=== PATIENT | male | born 1945 | race Caucasian/White ===

== ENCOUNTER 2023-01-04 14:33 | Inpatient (IN) | payer OTHER, MEDICARE ==
[~2023-01-04] VITALS: Ht 177.8 cm; Wt 104.5 kg
[2023-01-04] VITALS (11 sets, daily range): BP systolic 87–142; BP diastolic 35–62
[~2023-01-04 14:33] MED LIST: ATOR80TA PO; HYDR12.55 PO; LISI20TA28 PO; METF500T PO; METO100T7 PO; OMEG-79 PO; PREG150C PO; calcium chloride 100 MG/1 ML inj IV ONE; epiNEPHrine 0.1mg/ml 10ml syringe ONE; rocuronium 10mg/ml inj IV ONE; sod chloride 0.9% 10ml flush syringe IV ONE; sodium bicarbonate (8.4%) 1 mEq/ml syringe ONE
--- NOTE | 2023-01-04 14:39 | NUR ---
Pt just got here. Dr. Simons at bedside seen and examined patient
[2023-01-04] MEDS ORDERED: normal saline 1000ML IV soln IV ONE (14:40)
[2023-01-04] MEDS ORDERED: piperacillin/tazo 3.375gm/50ml 50 ML IV ONE (14:55)
--- NOTE | 2023-01-04 15:20 | NUR ---
Dr. Simons at bedside preparing to insert a central line
[2023-01-04 15:29] LABS: HEMOGLOBIN 9.5 g/dl (14.0-17.9); MEAN CORPUSCULAR VOLUME 99.1 FL (78-98)
[2023-01-04 15:30] LABS: BASOPHILS % (AUTO) 0.1 % (0-1); EOSINOPHILS % (AUTO) 0 % (0-6); HEMATOCRIT 29.7 % (42.0-52.0); LYMPHOCYTES # (AUTO) 0.6 X10'3 (1.1-4.8); LYMPHOCYTES % (AUTO) 2.5 % (21-51); MEAN CORPUSCULAR HEMOGLOBIN 31.9 PG (27.0-31.0); MEAN CORPUSCULAR HGB CONC 32.2 g/dL (33.0-36.5); MONOCYTES # (AUTO) 2.1 X10'3 (0-0.9); MONOCYTES % (AUTO) 8.9 % (2-12); NEUTROPHILS # (AUTO) 20.9 X10'3 (1.8-7.7); NEUTROPHILS % (AUTO) 88.5 % (42-75); PLATELET COUNT 185 X10'3 (140-440); RED BLOOD COUNT 2.99 X10'6 (4.70-6.10); RED CELL DISTRIBUTION WIDTH 13.6 % (11.5-14.5); WHITE BLOOD COUNT 23.7 X10'3 (4.5-11.0)
[2023-01-04] MEDS ORDERED: vancomycin 1,750 MG in NS 350ml IV soln IV ONE (15:39)
[2023-01-04] MEDS ORDERED: ketamine 10mg/ml 20ml inj vial IV ONE (15:45)
[2023-01-04] MEDS ORDERED: ketamine 50mg/5ml syringe ONE ×2 (15:45)
[2023-01-04 15:46] LABS: CLARITY,URINE SLIGHTLY CLOUDY (Clear); COLOR,URINE YELLOW (Yellow); GLUCOSE, URINE NEGATIVE (Neg); KETONES,URINE NEGATIVE (Neg); LEUKOCYTE ESTERASE ,URINE NEGATIVE (Neg); NITRITES, URINE NEGATIVE (Neg); OCCULT BLOOD,URINE MODERATE (Neg); PH,URINE 5.5 (4.8-8.0); PROTEIN,URINE 100 mg/dl (Neg); UROBILINOGEN,URINE 0.2 E.U/dL (0.2-1.0)
[2023-01-04] MEDS ORDERED: dexamethasone sod phosphate 10mg/ml inj IV STA (15:49)
[2023-01-04] MEDS ORDERED: NORepinephrine inj. 32 MG in normal saline 250ml IV soln 218 ML IV SCH ×3 (15:50→23:20)
[2023-01-04] MEDS ORDERED: NORepinephrine 8mg/ 250ml NS 250 ML IV PRN (15:50)
[2023-01-04 15:56] LABS: ALANINE AMINOTRANSFERASE 30 U/L (12-78); ALBUMIN/GLOBULIN RATIO 0.9 (1.1-1.5); ALKALINE PHOSPHATASE 83 IU/L (46-116); ANION GAP 29 (8-16); ASPARTATE AMINO TRANSFERASE 132 U/L (10-37); BILIRUBIN,TOTAL 0.2 MG/DL (0.1-1.0); BLOOD UREA NITROGEN 51 MG/DL (7-18); BUN/CREATININE RATIO 6.5 (10.0-20.0); CALCIUM 7.1 MG/DL (8.5-10.1); CHLORIDE 101 MMOL/L (99-107); CREATININE 7.89 MG/DL (0.60-1.10); GLUCOSE 174 MG/DL (70-104); MAGNESIUM 2.9 MG/DL (1.5-2.4); SODIUM 136 MMOL/L (135-145); TOTAL PROTEIN 6.3 G/DL (6.4-8.2); eGFR 7 ML/MIN
[2023-01-04] MEDS: NORepinephrine 8mg/ 250ml NS 250 ML IV PRN ×3 (15:56→23:06)
--- NOTE | 2023-01-04 15:58 | NUR ---
Daniel CLEMENTS administered Epi push dose 2 ml IVP
--- NOTE | 2023-01-04 15:59 | NUR ---
Another 3 ml push dose Epi IV by Sirisha CLEMENTS
[2023-01-04] MEDS ORDERED: sodium bicarbonate (8.4%) 1 mEq/ml syringe IV ONE (16:00)
[2023-01-04] MEDS ORDERED: glucagon, human recombinant 1mg kit IV ONE (16:00)
[2023-01-04 16:04] LABS: PHOSPHORUS 10.1 MG/DL (2.3-4.5); TOTAL CARBON DIOXIDE 5.8 MMOL/L (24-32)
[2023-01-04 16:07] LABS: POTASSIUM 6.4 MMOL/L (3.5-5.1)
--- NOTE | 2023-01-04 16:08 | NUR ---
RY at bedside. Standing by for intubation
[2023-01-04] MEDS ORDERED: midazolam 100mg in NS 100ml 100 ML IV PRN (16:10)
[2023-01-04] MEDS ORDERED: insulin regular, human 10 units/0.1 ml syringe IV ONE (16:10)
--- NOTE | 2023-01-04 16:12 | NUR ---
Rashmi kent in [facility] - 01/04/23 at 1624 by GORDO [id number] 1 amp IV via central line
--- NOTE | 2023-01-04 16:12 | NUR ---
calcium gluconate 1 amp IV given by Minesh CLEMENTS via central line
[2023-01-04] MEDS ORDERED: calcium chloride 100 MG/1 ML inj IV ONE (16:15)
[2023-01-04] MEDS ORDERED: ketamine 50 mg/ml 10ml vial IV ONE (16:17)
[2023-01-04] MEDS ORDERED: CALCIUM GLUC 1gm/50ml NACL,iso 50 ML IV ONE (16:20)
--- NOTE | 2023-01-04 16:21 | NUR ---
Good 50 IV given by Minesh CLEMENTS
--- NOTE | 2023-01-04 16:24 | NUR ---
Intubation ongoing. Pt on wrist restraints. RT at bedside
[2023-01-04 16:25] LABS: ABG BASE EXCESS -26.7 mmol/L (-2.0-2.0); ABG HCO3 4.9 mmol/L (22.0-26.0); ABG OXYGEN SATURATION 97.8 % (94-97); ABG PCO2 (T) 25.6 mmHg (35.0-48.0); ABG PO2 (T) 161.2 mmHg (75.0-100.0); ALLEN'S TEST NEGATIVE; FCOHb 0.3 % (0.0-3.9); FLOW 6 L/min; FMetHb 0.2 % (0.0-1.5); FO2Hb 97.3 % (94-97); TOTAL HEMOGLOBIN 10.6 G/dl (14.0-17.9)
--- NOTE | 2023-01-04 16:25 | NUR ---
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 POISON CONTROL STATES THAT THE RESULT OF THIS CAUSES TWISTER TENDER PAPER DEPRESSION AND MAY RESULT IN RENAL AND LIVER TOXICITY. POISON CONTROL STATES THAT THERE IS NOT CURE/ANECDOTE AND SUPPORTIVE TREATMENT IS RECOMMENDED. PROTECTING AIRWAY WITH INTUBATION AND CORRECTING ACIDOSIS, TYLENOL LEVEL, AND ASA LEVEL.
[2023-01-04 16:30] LABS: UA COLLECTION TYPE FOLEY CATH
[2023-01-04 16:31] LABS: MUCUS STRANDS FEW /LPF (Neg); SQUAMOUS EPITHELIAL CELL,UR FEW /LPF (FEW)
[2023-01-04 16:32] LABS: RENAL CELLS, URINE MODERATE /HPF; TRANSITIONAL EPI CELLS,URINE MODERATE /HPF
[2023-01-04 16:33] LABS: BACTERIA,URINE FEW /HPF (Neg); RBC,URINE 0-2 /HPF (0-2); WBC,URINE 0-4 /HPF (0-4)
[2023-01-04] MEDS ORDERED: normal saline 1000ML IV soln IVB ONE (16:45)
[2023-01-04] MEDS ORDERED: sodium bicarbonate (8.4%) inj. 100 MEQ in dextrose 5%-water 1,000 ML IV ONE (16:50)
[2023-01-04 17:10] LABS: ABG BASE EXCESS -25.2 mmol/L (-2.0-2.0); ABG HCO3 6.4 mmol/L (22.0-26.0); ABG OXYGEN SATURATION 96.1 % (94-97); ABG PCO2 (T) 31.9 mmHg (35.0-48.0); ABG PO2 (T) 108.2 mmHg (75.0-100.0); FCOHb 0.3 % (0.0-3.9); FMetHb 0.2 % (0.0-1.5); FO2Hb 95.6 % (94-97); RESPIRATORY RATE 20 b/min; TIDAL VOLUME 500 mL; TOTAL HEMOGLOBIN 11.3 G/dl (14.0-17.9)
[2023-01-04] MEDS: FENTANYL-0.9 % NACL/PF 100 ML IV PRN (17:29)
[2023-01-04 17:35] LABS: ACETAMINOPHEN 7.5 UG/ML (10-30)
[2023-01-04] MEDS ORDERED: acetaminophen 325mg tablet PO PRN (17:40)
[2023-01-04] MEDS ORDERED: mag hydrox/Alum hydrox/simeth 30ml oral suspension PO PRN (17:40)
[2023-01-04] MEDS ORDERED: ondansetron/PF 4mg/2ml inj IV PRN (17:40)
[2023-01-04] MEDS ORDERED: magnesium hydroxide 30ml (MOM) UD suspension PO PRN (17:40)
--- NOTE | 2023-01-04 17:42 | NUR ---
Dr. Geiger came to see the patient. Reported to him critical lab ammonia 168
[2023-01-04] MEDS ORDERED: normal saline 1000ml 1,000 ML IVB ONE (17:45)
--- NOTE | 2023-01-04 17:48 | NUR ---
Daughters at bedside
[2023-01-04 17:49] LABS: URINE AMPHETAMINE SCREEN NEGATIVE (Neg); URINE BARBITUATE SCREEN NEGATIVE (Neg); URINE BENZODIAZEPINES SCREEN NEGATIVE (Neg); URINE CANNABINOID SCREEN NEGATIVE (Neg); URINE COCAINE SCREEN NEGATIVE (Neg); URINE METHADONE SCREEN NEGATIVE (Neg); URINE OPIATE SCREEN NEGATIVE (Neg); URINE PHENCYCLIDINE SCREEN NEGATIVE (Neg)
[2023-01-04 18:00] LABS: ALBUMIN 3.1 G/DL (3.4-5.0); ANION GAP 26 (8-16); BLOOD UREA NITROGEN 52 MG/DL (7-18); BUN/CREATININE RATIO 6.8 (10.0-20.0); CALCIUM 7.9 MG/DL (8.5-10.1); CHLORIDE 100 MMOL/L (99-107); CREATININE 7.68 MG/DL (0.60-1.10); GLUCOSE 241 MG/DL (70-104); POTASSIUM 5.5 MMOL/L (3.5-5.1); SODIUM 136 MMOL/L (135-145); eGFR 7 ML/MIN
--- NOTE | 2023-01-04 18:02 | NUR ---
Patient started waking up, daughters at bedside. Daniel Mcelan called Dr. Geiger for me. Per Dr. Geiger increased the Fentanyl drip to 50mcg/hr.
--- NOTE | 2023-01-04 18:05 | NUR ---
Notified waist cutter for increased sedation, verbal order to increase fentanyl.
[2023-01-04 18:17] LABS: BURR CELLS 4+; PLATELET ESTIMATE NORMAL
--- NOTE | 2023-01-04 18:32 | NUR ---
attempted to call report to ICU at 1830, was informed that recieving RN will call back after completeing assessment on her floor pt.
--- NOTE | 2023-01-04 18:54 | NUR ---
This RN called Dr. Geiger for additional sedation orders due to fentanyl not sedating patient appropriately at 65mcg/hr. Telephone order recieved from Dr. Geiger to increase fentanyl up to 100mcg/hr.
[2023-01-04 19:01] LABS: ETHANOL < 0.010 GM/DL (0.0-0.010)
[2023-01-04 19:05] LABS: CREATINE KINASE 3924 U/L (39-308)
[2023-01-04] MEDS: normal saline 1000ml 1,000 ML IV SCH ×6 (19:06→22:57)
[2023-01-04 19:07] LABS: OSMOLALITY 320 MOSM/K (280-300)
--- NOTE | 2023-01-04 19:20 | NUR ---
Attempted to call Dr. Geiger 2x for additional sedation orders, pt agitated, biting ETT, & pulling on restraints. No answer. Awaiting call back at this time.
--- NOTE | 2023-01-04 19:30 | NUR ---
RT at bedside to transport pt up to ICU.
[2023-01-04] MEDS ORDERED: propofol 1000mg/100ml bottle 100 ML IV ONE (19:55)
[2023-01-04] MEDS ORDERED: heparin, porcine 5000 units/ml vial SQ SCH (20:00)
[2023-01-04] MEDS ORDERED: docusate sod 100mg capsule PO SCH (20:00)
[2023-01-04] MEDS: sodium polystyrene sulfonate 15gm/60ml oral suspension PO SCH (20:00)
[2023-01-04] MEDS: propofol 1000mg/100ml bottle 100 ML IV SCH ×2 (20:04→23:54)
[2023-01-04] MEDS: sodium bicarbonate (8.4%) inj. 150 MEQ in dextrose 5%-water 1,000 ML IV SCH (20:42)
--- NOTE | 2023-01-04 21:13 | NUR ---
orders received from poison control, updated on pts condition and prior labs.
[2023-01-04] MEDS ORDERED: NORMAL SALINE IV SCH (22:00)
[2023-01-04] MEDS ORDERED: DOXYCYCLINE IV SCH (22:00)
[2023-01-04 22:07] LABS: ABG HCO3 6.7 mmol/L (22.0-26.0); ABG OXYGEN SATURATION 95.7 % (94-97); ABG PCO2 (T) 24.4 mmHg (35.0-48.0); ABG PO2 (T) 70.3 mmHg (75.0-100.0); FCOHb 0.3 % (0.0-3.9); FMetHb 0.2 % (0.0-1.5); FO2Hb 95.2 % (94-97); PATIENT TEMPERATURE 31.9; PEEP 5 cm H2O; RESPIRATORY RATE 20 b/min; TIDAL VOLUME 500 mL; TOTAL HEMOGLOBIN 10.8 G/dl (14.0-17.9)
[2023-01-04 22:22] LABS: OSMOLALITY 319 MOSM/K (280-300)
[2023-01-04 22:39] LABS: ALANINE AMINOTRANSFERASE 30 U/L (12-78); ALBUMIN 2.7 G/DL (3.4-5.0); ALBUMIN/GLOBULIN RATIO 0.8 (1.1-1.5); ALKALINE PHOSPHATASE 81 IU/L (46-116); ANION GAP 26 (8-16); ASPARTATE AMINO TRANSFERASE 126 U/L (10-37); BILIRUBIN,TOTAL 0.2 MG/DL (0.1-1.0); BLOOD UREA NITROGEN 51 MG/DL (7-18); CHLORIDE 100 MMOL/L (99-107); CREATININE 7.27 MG/DL (0.60-1.10); GLUCOSE 317 MG/DL (70-104); MAGNESIUM 2.6 MG/DL (1.5-2.4); PHOSPHORUS 8.4 MG/DL (2.3-4.5); POTASSIUM 5.3 MMOL/L (3.5-5.1); SODIUM 135 MMOL/L (135-145); eGFR 7 ML/MIN
[2023-01-04 22:40] LABS: TOTAL CARBON DIOXIDE 8.6 MMOL/L (24-32)
[2023-01-04] MEDS ORDERED: albumin (human) 25% 100ml IV 100 ML IV PRN (22:55)
[2023-01-04] MEDS ORDERED: heparin 1,000unit/ml 10ml vial 10 ML IV ONE (22:55)
[2023-01-04] MEDS ORDERED: mannitol 12.5gm/50mL VIAL IV ONE (22:55)
[2023-01-04] MEDS ORDERED: heparin 1,000 units/ml 10ml inj IV ONE (22:55)
[2023-01-04] MEDS ORDERED: heparin 1,000 units/ml 10ml inj HE ONE ×2 (23:00)
--- NOTE | 2023-01-04 23:00 | NUR ---
rounded by content curator blacking machine operator Dr Promise VEGA , DR. GLASS HERE AND PLACE JALEESA CATH ON LEFT FEMORAL
[2023-01-04] MEDS ORDERED: glucagon, human recombinant 1mg kit SUBCUT PRN (23:20)
[2023-01-04] MEDS ORDERED: MESSAGE TO PHARMACY PO ONE (23:20)
[2023-01-04] MEDS ORDERED: dextrose 50%-water 50ml dispensing syringe IV PRN ×2 (23:20)
[2023-01-04] MEDS ORDERED: insulin Lispro (HumaLOG) vial - multi-dose SQ SCH (23:20)
[2023-01-04] MEDS ORDERED: DEXTROSE 15 GM of carb/4 tabs (each vial/BOTTLE has 4 tablets) PO PRN ×2 (23:20)
[2023-01-05] VITALS (7 sets, daily range): BP systolic 101–113; BP diastolic 45–53
[2023-01-05] MEDS ORDERED: sodium bicarbonate (8.4%) inj. 1 MEQ/ML ML IV ONE
[2023-01-05] MEDS ORDERED: piperacillin/tazo 3.375gm/50ml 50 ML IV SCH
[2023-01-05] MEDS ORDERED: dexamethasone 4mg/ml inj IV SCH
[2023-01-05] MEDS ORDERED: pantoprazole 40MG/NS 100ML BAG 100 ML IV SCH ×2 (00:10→08:00)
[2023-01-05] MEDS: normal saline 1000ml 1,000 ML IV SCH (00:16)
[2023-01-05] MEDS: FENTANYL-0.9 % NACL/PF 100 ML IV PRN (00:40)
[2023-01-05] MEDS ORDERED: sodium bicarbonate (8.4%) 1 mEq/ml syringe IV ONE (00:45)
--- NOTE | 2023-01-05 01:52 | NUR ---
Requested by Dr. Chong to transfer patient to another acute care facility for emergent diau Addendum: 01/05/23 at 0159 by Zeyad Mays RN dialysis. Notified [facility] to see if [facility] could take patient. [facility] declined because lack of beds. Transfer Center said will present to all the [facility] in the [facility]. Transfer Center called back at 0145 and stated all hospitals declined for various reasons. Still waiting on one hospital. [facility] called. Stated they had a bed but no dialysis service available tonight. Called [facility] and presented patient. Awaiting for response from [facility] transfer center.
[2023-01-05 02:27] LABS: ABG BASE EXCESS -17.6 mmol/L (-2.0-2.0); ABG OXYGEN SATURATION 94.2 % (94-97); ABG PCO2 (T) 20.9 mmHg (35.0-48.0); ABG PO2 (T) 61.4 mmHg (75.0-100.0); FCOHb 0.3 % (0.0-3.9); FMetHb 0.1 % (0.0-1.5); FO2Hb 93.8 % (94-97); PATIENT TEMPERATURE 33.7; PEEP 5 cm H2O; RESPIRATORY RATE 30 b/min; TIDAL VOLUME 500 mL; TOTAL HEMOGLOBIN 10.6 G/dl (14.0-17.9)
[2023-01-05] MEDS: sodium polystyrene sulfonate 15gm/60ml oral suspension PO SCH (02:49)
[2023-01-05] MEDS: sodium bicarbonate (8.4%) 1 mEq/ml syringe IV SCH ×2 (02:50→03:53)
[2023-01-05 03:05] LABS: BASOPHILS % (AUTO) 0.1 % (0-1); EOSINOPHILS % (AUTO) 0 % (0-6); HEMATOCRIT 29.9 % (42.0-52.0); HEMOGLOBIN 9.6 g/dl (14.0-17.9); LYMPHOCYTES # (AUTO) 0.6 X10'3 (1.1-4.8); LYMPHOCYTES % (AUTO) 2.6 % (21-51); MEAN CORPUSCULAR HEMOGLOBIN 31.7 PG (27.0-31.0); MEAN CORPUSCULAR HGB CONC 32.3 g/dL (33.0-36.5); MEAN CORPUSCULAR VOLUME 98.1 FL (78-98); MEAN PLATELET VOLUME 7.8 FL (7.4-10.4); MONOCYTES # (AUTO) 0.9 X10'3 (0-0.9); MONOCYTES % (AUTO) 3.8 % (2-12); NEUTROPHILS # (AUTO) 21.3 X10'3 (1.8-7.7); NEUTROPHILS % (AUTO) 93.5 % (42-75); PLATELET COUNT 193 X10'3 (140-440); RED BLOOD COUNT 3.04 X10'6 (4.70-6.10); RED CELL DISTRIBUTION WIDTH 13.9 % (11.5-14.5); WHITE BLOOD COUNT 22.8 X10'3 (4.5-11.0)
[2023-01-05 03:15] LABS: APTT 32 SECONDS (22-32)
[2023-01-05] MEDS: sodium bicarbonate (8.4%) inj. 150 MEQ in dextrose 5%-water 1,000 ML IV SCH (03:25)
[2023-01-05 03:49] LABS: HEMOGLOBIN A1C 6.7 % (4.5-6.2)
[2023-01-05 03:51] LABS: RHEUM FACTOR QUAL REFLEX TITER NEGATIVE (Neg)
[2023-01-05 03:53] LABS: ALANINE AMINOTRANSFERASE 30 U/L (12-78); ALBUMIN 2.6 G/DL (3.4-5.0); ALBUMIN/GLOBULIN RATIO 0.8 (1.1-1.5); ALKALINE PHOSPHATASE 77 IU/L (46-116); ANION GAP 31 (8-16); ASPARTATE AMINO TRANSFERASE 120 U/L (10-37); BILIRUBIN,TOTAL 0.3 MG/DL (0.1-1.0); BLOOD UREA NITROGEN 52 MG/DL (7-18); BUN/CREATININE RATIO 7.2 (10.0-20.0); CALCIUM 6.8 MG/DL (8.5-10.1); CHLORIDE 98 MMOL/L (99-107); CREATININE 7.25 MG/DL (0.60-1.10); GLUCOSE 376 MG/DL (70-104); LACTATE DEHYDROGENASE 280 U/L (85-227); MAGNESIUM 2.5 MG/DL (1.5-2.4); POTASSIUM 4.4 MMOL/L (3.5-5.1); SODIUM 138 MMOL/L (135-145); TOTAL PROTEIN 5.7 G/DL (6.4-8.2); TRIGLYCERIDES 370 MG/DL (20-135); eGFR 7 ML/MIN
[2023-01-05 04:01] LABS: TOTAL CARBON DIOXIDE 9.5 MMOL/L (24-32)
--- NOTE | 2023-01-05 04:25 | NUR ---
Report called to [facility] ICU bed 19, updated receiving STARR Contreras.
[2023-01-05 04:28] LABS: HIV ANTIBODY 1&2 RAPID NON-REACTIVE (Neg)
[2023-01-05] MEDS: propofol 1000mg/100ml bottle 100 ML IV SCH (04:33)
--- NOTE | 2023-01-05 05:17 | NUR ---
PATIENT LEFT WITH TRANSPORT , REPORT GIVEN
[2023-01-05] MEDS ORDERED: insulin glargine (Lantus) pen - multi-dose SQ SCH (21:00)
[2023-01-06 13:36] LABS: A/G RATIO 0.9 (0.7-1.7); ALBUMIN 2.5 g/dL (2.9-4.4); BETA GLOBULIN 0.8 g/dL (0.7-1.3); COMPLEMENT C3, SERUM 102 mg/dL (82-167); COMPLEMENT C4, SERUM 19 mg/dL (12-38); GAMMA GLOBULIN 0.6 g/dL (0.4-1.8); GLOBULIN, TOTAL 2.8 g/dL (2.2-3.9); HBSAG SCREEN Negative (Negative); M-SPIKE Not Observed g/dL (Not Observed); PROTEIN, TOTAL, SERUM 5.3 g/dL (6.0-8.5)
[2023-01-06 20:13] LABS: ANTINUCLEAR ANTIBODIES Negative (Negative)
[2023-01-09 07:45] LABS: OCCULT BLOOD STOOL POSITIVE (Neg)
[2023-01-10 18:01] LABS: ATYPICAL PANCA <1:20 titer (Neg:<1:20); CYTOPLASMIC (C-ANCA) <1:20 titer (Neg:<1:20); PERINUCLEAR (P-ANCA) <1:20 titer (Neg:<1:20)
== END 2023-01-05 05:19 | disposition critical access hospital (66) | DRG 871 ==
LOC: ER 14:33 → EDBD 14:33 → ED HOLD 18:07 → ICU 2S 19:52
PROVIDERS: ADMIT Student in an Organized Health Care Education/Training Program; ATTEND Student in an Organized Health Care Education/Training Program
PROC: 5A1935Z Respiratory Ventilation, Less than 24 Consecutive Hours (ICD-10-PCS; principal; 2023-01-04)
PROC: 0BH17EZ Insertion of Endotracheal Airway into Trachea, Via Natural or Artificial Opening (ICD-10-PCS; 2023-01-04)
PROC: 05HY33Z Insertion of Infusion Device into Upper Vein, Percutaneous Approach (ICD-10-PCS; 2023-01-04)
PROC: 04HY32Z Insertion of Monitoring Device into Lower Artery, Percutaneous Approach (ICD-10-PCS; 2023-01-04)
PROC: 06HY33Z Insertion of Infusion Device into Lower Vein, Percutaneous Approach (ICD-10-PCS; 2023-01-04)
DX: A41.9 Sepsis, unspecified organism (principal); G93.41 Metabolic encephalopathy; R57.1 Hypovolemic shock; R65.21 Severe sepsis with septic shock; J96.01 Acute respiratory failure with hypoxia; E87.20 Acidosis, unspecified; N17.9 Acute kidney failure, unspecified; J98.11 Atelectasis; F20.0 Paranoid schizophrenia; T50.995A Adverse effect of other drugs, medicaments and biological substances, initial encounter; Z60.2 Problems related to living alone; D64.9 Anemia, unspecified; R34 Anuria and oliguria; N18.9 Chronic kidney disease, unspecified; R56.9 Unspecified convulsions; B19.20 Unspecified viral hepatitis C without hepatic coma; E11.22 Type 2 diabetes mellitus with diabetic chronic kidney disease; E87.5 Hyperkalemia; I12.9 Hypertensive chronic kidney disease with stage 1 through stage 4 chronic kidney disease, or unspecified chronic kidney disease; I25.2 Old myocardial infarction; Z63.8 Other specified problems related to primary support group; Y92.89 Other specified places as the place of occurrence of the external cause; Z91.148 Patient's other noncompliance with medication regimen for other reason
CPT/HCPCS: 36415; 36600; 71045; 80048; 80053; 80305; 80320; 80329; 81001; 82009; 82140; 82272; 82550; 82570; 82575; 82803; 82948; 83036; 83605; 83615; 83735; 83930; 84100; 84145; 84155; 84165; 84439; 84443; 84478; 84484; 85008; 85018; 85025; 85610; 85651; 85730; 86038; 86060; 86160; 86256; 86430; 86703; 86885; 86900; 86901; 87040; 87070; 87077; 87186; 87340; 93005; 94002; 94760; 94799; 96365; 96367; 96375; 99291; A4314; A4615; A6213; A6258; A6449; C1752; C1758; C9113; G0378; J0171; J1100; J1610; J1815; J2543; J2704; J3010; J3370; J3490; J7030; J7040; J7050; J7070

== ENCOUNTER 2025-01-08 11:37 | Emergency (ER) | payer OTHER, MEDICARE ==
[~2025-01-08] VITALS: Ht 177.8 cm; Wt 103.0 kg
[~2025-01-08 11:37] MED LIST changes: +AMLO5TAB PO; +BUPR8TAB4 SL; +FURO-149 PO; -HYDR12.55 PO; -LISI20TA28 PO; -METF500T PO; -METO100T7 PO; -OMEG-79 PO; +PIOG30TA71 PO; -calcium chloride 100 MG/1 ML inj IV ONE; -epiNEPHrine 0.1mg/ml 10ml syringe ONE; -rocuronium 10mg/ml inj IV ONE; -sod chloride 0.9% 10ml flush syringe IV ONE; -sodium bicarbonate (8.4%) 1 mEq/ml syringe ONE
[2025-01-08] MEDS: normal saline 1000ml 1,000 ML IV ONE ×3 (12:11→15:14)
[2025-01-08] MEDS: ondansetron/PF 4mg/2ml inj IV ONE ×2 (12:11→12:12)
[2025-01-08] MEDS: normal saline 1000ML IV soln IVB ONE (12:12)
[2025-01-08 12:15] VITALS: TEMP 97.7
[2025-01-08] MEDS: morphine 4 MG/ML inj SYRINge IV ONE ×2 (12:17→14:13)
[2025-01-08 12:26] LABS: GASTRIC OCCULT BLOOD POSITIVE (Neg)
--- NOTE | 2025-01-08 12:30 | Physician Documentation ---
History of Present Illness ~ Chief Complaint: Headache Stated Complaint: HEADACHE Time Seen by MD: 12:05 HPI 79-year-old male presents to the ED after developing nausea vomiting light sensitivity and body aches along with a headache that is developed over the last week. He is a poor historian vitals within normal limits of the mild tachycardia, no fever. initially ,Patient denied any bloody vomit or dark tarry stools. Patient's vomiting during the initial interview. He is poor historian. Upon family's arrival they reported a different history. Patient drinks excessive amounts of alcohol including Tequila and he has been taking large a georgette of Sherwood. Family states that he has very noncompliant with medical care and medications.. Day of Onset: Jan 08, 2025 Medication Reconciliation Allergies: Coded Allergies: No Known Allergies (Unverified , 01/04/23) Scheduled Amlodipine Besylate (Amlodipine Besylate), 1 TABLET PO DAILY, (Reported) Atorvastatin Calcium (Lipitor), 1 TAB PO DAILY, (Reported) Buprenorphine Hcl (Buprenorphine Hcl), 1 TAB SL DAILY, (Reported) Furosemide (Lasix), 1 TAB PO DAILY, (Reported) Pioglitazone Hcl (Pioglitazone Hcl), 1 TAB PO DAILY, (Reported) Pregabalin (Lyrica), 1 CAP PO DAILY, (Reported) Past Medical History Past Medical History: Hypertension, Diabetes Past Surgical History: noncontributory Alcohol Use: Other Drug Use: other Lives with: Alone Lives In: Home Occupation: unemployed Review of Systems All Other Systems at this time: Reviewed and Negative ROS As stated above in the HPI, otherwise all systems are reviewed and negative. Physical Exam Vital Signs: Temperature: 97.7, Source: Oral, Heart Rate: 105, Respiratory Rate: 20, BP: 116/78, Pulse Oximetry: 96, Weight: 103.000 Oxygen Flow Rate: 0 Physical Exam General: Alert, no apparent distress. Respiratory: Lungs clear, no respiratory distress. Cardiovascular: tachycardic and rhythm, no murmurs. Gastrointestinal: Soft,tender, nondistended. Bowels sounds present. Neurologic: Oriented x4. Skin: pale color, warm and dry. No edema, no ecchymosis. Progress Progress Note While in the ED patient began having coffee-ground emesis and tested positive for a gastroccult. In addition he began to have diarrhea including black tarry stools. Patient has become hypotensive several times requiring fluid boluses. His initial set of laboratory values did not indicate any gross concerns over anemia. Going to redraw at this time.[id number] Results/Orders Results/Orders Orders - ZAY LEIVA TOUCH UP WORKER Covid19 Binax Poc Result Entry (01/08/25 12:07) Urinalysis, Cult If Indicated (01/08/25 12:11) Ct Abdomen Pelvis (01/08/25 12:26) Type And Screen (01/08/25 12:38) * Remove Nasogastric Tube (01/08/25 12:45) Pantoprazole 40mg Iv (Protonix 40mg Iv) (01/08/25 13:30) Ceftriaxone 2gm/D5w 50ml Bag (Rocephin 2 (01/08/25 14:45) PTT (01/08/25 14:48) Fibrinogen (01/08/25 14:48) Nasal Gastric Tube (01/08/25 ) Normal Saline 1000ml (0.9% Sodium Chlori (01/08/25 15:05) Normal Saline 1000ml (0.9% Sodium Chlori (01/08/25 15:05) Chest,Single View (01/08/25 15:10) Insert Temp Bladder Cath (01/08/25 ) Cbc/Diff (01/08/25 15:26) Completed Orders - ZAY LEIVA TOUCH UP WORKER Ondansetron Inj. (Zofran 4mg/2ml Vial) (01/08/25 12:10) Normal Saline 1000ml (0.9% Sodium Chlori (01/08/25 12:10) Ondansetron Inj. (Zofran 4mg/2ml Vial) (01/08/25 12:10) Normal Saline 1000ml (0.9% Sodium Chlori (01/08/25 12:10) Morphine 4mg/Ml Inj. (Morphine Inj.) (01/08/25 12:10) Cbc/Diff (01/08/25 12:11) BMP (01/08/25 12:11) Lipase (01/08/25 12:11) CMP (01/08/25 12:11) Gastroccult (01/08/25 12:20) Ct Abdomen Pelvis (01/08/25 12:26) Acetaminophen (01/08/25 13:33) LA (01/08/25 13:38) Morphine 4mg/Ml Inj. (Morphine Inj.) (01/08/25 14:10) Pt Inr (01/08/25 14:24) Chest,Single View (01/08/25 15:10) Medications Received in ER Medications (Trade) Dose Ordered Sig/Brandon Route PRN Reason Start Time Stop Time Status Last Admin Dose Admin (Zofran 4mg/2ml vial) 8 mg ONCE ONCE IV 01/08/25 12:10 01/08/25 12:11 DC 01/08/25 12:12 8 MG Sodium Chloride 1,000 ml @ 1,000 mls/hr ONCE ONCE IV 01/08/25 12:10 01/08/25 13:09 DC 01/08/25 12:11 1,000 MLS/HR (morphine inj.) 4 mg ONCE ONCE IV 01/08/25 12:10 01/08/25 12:11 DC 01/08/25 12:17 4 MG (Protonix 40mg IV) 40 mg DAILY IV 01/08/25 13:30 01/08/25 14:14 40 MG (morphine inj.) 4 mg ONCE ONCE IV 01/08/25 14:10 01/08/25 14:11 DC 01/08/25 14:13 4 MG Ceftriaxone Sodium/Dextrose 50 ml @ 100 mls/hr DAILY IV 01/08/25 14:45 01/08/25 15:02 100 MLS/HR Sodium Chloride 1,000 ml @ 1,000 mls/hr ONCE ONCE IV 01/08/25 15:05 01/08/25 16:04 01/08/25 15:07 1,000 MLS/HR Vital Signs 01/08/25 01/08/25 01/08/25 01/08/25 11:42 11:57 12:15 14:13 Temp 97.6 97.7 Pulse 103 100 105 Resp 16 19 20 12 B/P (MAP) 134/78 94/58 (70) 116/78 (91) Pulse Ox 97 94 96 O2 Flow Rate 0 0 01/08/25 14:34 Pulse 89 Resp 14 B/P (MAP) 91/59 (70) Pulse Ox 98 Laboratory Tests Test 01/08/25 12:20 01/08/25 12:33 01/08/25 13:41 01/08/25 15:44 Gastric Fluid Occult Blood Positive H White Blood Count 22.7 H Red Blood Count 3.94 L Hemoglobin 12.9 L Hematocrit 38.9 L Mean Corpuscular Volume 98.7 H Mean Corpuscular Hemoglobin 32.7 H Mean Corpuscular Hemoglobin Concent 33.1 Red Cell Distribution Width 14.4 Platelet Count 341 Mean Platelet Volume 8.3 Neutrophils (%) (Auto) 89.1 H Lymphocytes (%) (Auto) 4.6 L Monocytes (%) (Auto) 5.9 Eosinophils (%) (Auto) 0 Basophils (%) (Auto) 0.4 Neutrophils # (Auto) 20.2 H Lymphocytes # (Auto) 1.1 Monocytes # (Auto) 1.3 H Eosinophils # (Auto) 0.0 Basophils # (Auto) 0.1 CBC Comment Prothrombin Time 12.9 H INR International Normalized Ratio 1.3 Coagulation Comments Sodium Level 131 L Potassium Level 5.5 H Chloride Level 92 L Carbon Dioxide Level 7.1 *L Anion Gap 32 H Blood Urea Nitrogen 72 H Creatinine 2.36 H Estimated GFR/1.73 m2 27 BUN/Creatinine Ratio 30.5 H Glucose Level 223 H Calcium Level 8.1 L Total Bilirubin 0.4 Aspartate Amino Transf (AST/SGOT) 151 H Alanine Aminotransferase (ALT/SGPT) 123 H Alkaline Phosphatase 105 Total Protein 7.0 Albumin 2.9 L Globulin 4.1 Albumin/Globulin Ratio 0.7 L Lipase 94 H Chemistry Comments Acetaminophen Level 82.3 *H Lactic Acid Level 1.0 Medical Decision Making Findings This patient presents with symptoms concerning for an acute upper GI bleed. Differential diagnoses includes peptic ulcer disease, versus gastritis/gastric ulcer, discovered that patient has been taking excessive amounts of prescribed [place] which has led to an elevated level of acetaminophen at 83.. Patient received PPI ceftriaxone _ Patient has continued to report a headache throughout his stay which I have treated with morphine. Currently suspecting that a GI bleed occurred secondary to high levels of acetaminophen. He has also been hypotensive several times while in the ED which has required multiple normal saline boluses.. I have spoken to both the GI specialist in the ED physician at [facility]. He will be transferred ED to ED shortly. At this time ,patient presents safe for transfer Differential Dx:Considerations: Include: FLETCHER-Cluster, FLETCHER-Migraine, FLETCHER- Hypertensive, FLETCHER-Muscular contraction, FLETCHER-Post lumbar puncture, Carbon monoxide toxicity, Close head injuyr, CVA, Fever induced, Hemorrhage-Epidural, Hemorrhage-Intracerebral, Hemorrhage-Subarachnoid, Hemorrhage-Subdural, Mass lesion, Meningitis, Post-traumtic, Pseudotumor cerebri, Sinusitis, Temporal arteritis, Trigeminal neuralgia, Other Departure Disposition: 02 SHORT TERM HOSPITAL Impression: Primary Impression: Anemia Additional Impressions: GI (gastrointestinal bleed) Acetaminophen level above therapeutic range Headache Condition: Fair Referrals: NO PRIMARY CARE PROVIDER (PCP) Critical Care Note Total Time (mins): 60 Critical Care Note The very real possibility of a deterioration of this patient's condition required the highest level of my preparedness for sudden, emergent intervention. I provided critical care services, which included medication orders, frequent reevaluations of the patient's condition and response to treatment, ordering and reviewing test results, and discussing the case with various consultants. Excludes time spent performing separately billable procedures. The critical care time associated with the care of the patient was. Signature Scribe Signature: f Attestation: Scribed for Zay Leiva Saw Cleaner by Zay Burton NP . 01/08/25 15:55 ZAY LEIVA NP Jan 08, 2025 12:30
[2025-01-08 12:50] LABS: MEAN PLATELET VOLUME 8.3 FL (7.4-10.4); RED CELL DISTRIBUTION WIDTH 14.4 % (11.5-14.5)
[2025-01-08 13:02] LABS: CREATININE 2.36 MG/DL (0.60-1.10); eCRCL 25 ML/MIN; eGFR 27 ML/MIN
[2025-01-08 13:22] LABS: TOTAL CARBON DIOXIDE 7.1 MMOL/L (24-32)
--- NOTE | 2025-01-08 14:53 | RADIOLOGY REPORT ---
Exam: CT CT ABDOMEN PELVIS History: abd pain Comparison Study: CT CT CHEST ABDOMEN PELVIS on DOS: 02/27/23 Technique: Multidetector spiral CT of the abdomen was performed from lung bases to pubic symphysis. I maging was performed without IV contrast. Axial, coronal and sagittal multiplanar reformats were obta ined from the axial data set by the technologist. Radiation Dose : 1. Abdomen/Pelvis: CTDIvol 30.4 mGy, DLP 1733.6 mGy*cm. Findings: Evaluation of solid organs is limited due to lack of intravenous contrast use. Lung Bases: No acute or significant lung base finding. Normal heart size. No pleural or pericardial effusion. Liver: The liver is normal in size. No focal lesions. Gallbladder and Biliary Tree: Unremarkable Spleen: Unremarkable Pancreas: The pancreas is grossly normal in appearance. Adrenal Glands: Unremarkable Kidneys: Few punctate bilateral nonobstructing renal stones measuring up to 0.2 cm. Bladder: Grossly unremarkable for degree of distention. Bowel: Distended stomach. Diverticulosis. The appendix is not visualized; however, no secondary findi ngs of acute appendicitis identified. Ascites: Absent Lymphadenopathy: No mesenteric, retroperitoneal or periportal lymphadenopathy. Abdominal Wall and Mesentery: Small left fat containing inguinal hernia. Vasculature: The visualized abdominal aorta is normal in size and caliber. There is extensive athero sclerotic calcification of the aorta and its branches. Evaluation of abdominal and pelvic vessels is limited due to lack of intravenous contrast. Pelvic Organs: Unremarkable Musculoskeletal: No aggressive focal bony lesions, acute fractures or dislocation. Multilevel degener ative changes of the spine. Grade 1 anterolisthesis of L4 on L5. IMPRESSION: Limited examination secondary to patient motion artifact. Distended stomach. Few punctate bilateral nonobstructing renal stones measuring up to 0.2 cm.
[2025-01-08 14:56] LABS: INR 1.3 INR
[2025-01-08] MEDS: CefTRIAXone 2gm/D5W 50ml BAG 50 ML IV SCH (15:02)
[2025-01-08 15:52] LABS: MEAN PLATELET VOLUME 7.5 FL (7.4-10.4); RED CELL DISTRIBUTION WIDTH 14.6 % (11.5-14.5)
--- NOTE | 2025-01-08 16:07 | RADIOLOGY REPORT ---
CHEST RADIOGRAPH Indication: infection Technique: Single frontal view of the chest was obtained COMPARISON: DI CHEST,SINGLE VIEW on DOS: 02/27/23, CHEST,SINGLE VIEW on DOS: 01/04/23, CHEST,SINGLE VIEW on DOS: 01/04/23 FINDINGS: Lines and Tubes: None Lungs: Increased interstitial prominence Pleura: No effusion. No pneumothorax. Cardiomediastinal contours: Cardiomegaly Bones: Unremarkable IMPRESSION: Mild pulmonary vascular congestion
[2025-01-08 16:55] LABS: LEUKOCYTE ESTERASE ,URINE NEGATIVE (Neg); NITRITES, URINE NEGATIVE (Neg); OCCULT BLOOD,URINE NEGATIVE (Neg)
[2025-01-08 16:56] LABS: UA COLLECTION TYPE URINAL
[2025-01-08 17:02] LABS: YEAST FEW /HPF (NEGATIVE)
[2025-01-08 17:03] LABS: SQUAMOUS EPITHELIAL CELL,UR FEW /LPF (FEW)
[2025-01-08 17:27] VITALS: BP 113/67; PULSE 92; RESP 16; O2SAT 94
== END 2025-01-08 17:29 | disposition short-term general hospital (02) ==
LOC: ER 11:38
DX: K92.2 Gastrointestinal hemorrhage, unspecified (principal); D64.9 Anemia, unspecified; R51.9 Headache, unspecified; E11.9 Type 2 diabetes mellitus without complications; I10 Essential (primary) hypertension; Z79.899 Other long term (current) drug therapy; Z56.0 Unemployment, unspecified; Z60.2 Problems related to living alone; Z20.822 Contact with and (suspected) exposure to COVID-19
CPT/HCPCS: 36415; 71045; 74176; 80053; 80329; 81001; 82271; 83605; 83690; 85025; 85610; 86885; 86900; 86901; 87088; 96361; 96365; 96375; 96376; 99291; J0696; J2270; J2405; J2470; J7030; 99285; C1751

== ENCOUNTER 2025-02-02 19:00 | Emergency (ER) | payer OTHER, MEDICARE, MEDICAID ==
[~2025-02-02] VITALS: Ht 177.8 cm; Wt 102.3 kg
--- NOTE | 2025-02-02 19:12 | ELECTROCARDIOGRAPH REPORT ---
[facility] Test Date: 2025-02-02 Test Time: 19:09:58 Pat Name: TATIANA NGERO Department: [facility]- Patient ID: [id number] Room: Gender: M Stunt Man: : 1945 Requested By: CHANDNI GALLEGO Order Number: [id number] Reading MD: Measurements Intervals Sherman Rate: 110 P: -83 TN: 201 QRS: -75 QRSD: 84 T: 28 QT: 296 QTc: 401 Interpretive Statements Sinus or ectopic atrial tachycardia Inferior infarct, old Anterior infarct, old Please click the below link to view image of tracing.
--- NOTE | 2025-02-02 19:49 | RADIOLOGY REPORT ---
CHEST RADIOGRAPH Indication: CP Technique: Single frontal view of the chest was obtained Comparison: DI CHEST,SINGLE VIEW on DOS: 01/08/25, CT CT CHEST ABDOMEN PELVIS on DOS: 02/27/23, DI CHEST ,SINGLE VIEW on DOS: 02/27/23 FINDINGS: Lines and Tubes: None Lungs: No focal consolidation. Interstitial prominence right upper to mid lung zone Linear density wi th left lateral Upper lung zone linear density. Pleura: No effusion. No pneumothorax. Cardiomediastinal contours: Unremarkable Bones: No acute osseous abnormality. IMPRESSION: Pulmonary vascular congestion with right upper to mid lung zone and left upper lung zone atelectasis / scarring
--- NOTE | 2025-02-02 20:06 | RADIOLOGY REPORT ---
Procedure: [facility] Study Date and Requested Time: 02/02/2025 07:41 PM History: headache Comparison: CT CTA NECK/HEAD on DOS: 02/27/23, CT CT HEAD on DOS: 02/27/23, CT CT CERVICAL SPINE on DOS: 02/27/23 Dose: CTDI: 72.56 mGy DLP: 1295.63 mGycm Technique: Multiplanar images obtained through the brain without intravenous contrast. Findings: Kgyf-gg-khnygzfj diffuse brain Atrophy. Mild chronic small vessel ischemic changes. Calcification of the frontal falx. No hemorrhages, masses, mass effect, midline shift, herniation or cytotoxic edema following a large v ascular territory. No intra-axial or extra-axial fluid collections. No evidence of hydrocephalus. The basal cisterns are patent. The pituitary gland, sella and parasellar regions are unremarkable. The cerebellar tonsils are in nor mal position. The cerebellum is unremarkable. Bilateral lens replacement. Otherwise, orbits and globes are unremarkable. The paranasal sinuses and mastoids are clear. 4 mm lytic lesion of the left parietal calvarium present a Hemangioma within Met astasis not excluded. Impression: No evidence of acute intracranial abnormality.
[2025-02-02 20:16] LABS: MEAN PLATELET VOLUME 7.9 FL (7.4-10.4); RED CELL DISTRIBUTION WIDTH 15.2 % (11.5-14.5)
[2025-02-02 20:36] LABS: CREATININE 1.71 MG/DL (0.60-1.10); PRO BRAIN NATRIURETIC PEPTIDE 243 PG/ML (0-450); TOTAL CARBON DIOXIDE 20.8 MMOL/L (24-32); eCRCL 35 ML/MIN; eGFR 39 ML/MIN
[2025-02-02] MEDS: ketorolac trometh 30MG/ML vial 30 MG/ML VIAL IM ONE (21:22)
[2025-02-03 00:01] VITALS: TEMP 98.2
[2025-02-03 03:37] LABS: LEUKOCYTE ESTERASE ,URINE NEGATIVE (Neg); NITRITES, URINE NEGATIVE (Neg); OCCULT BLOOD,URINE NEGATIVE (Neg)
[2025-02-03 03:41] LABS: UA COLLECTION TYPE OTHER
[2025-02-03 03:43] LABS: SQUAMOUS EPITHELIAL CELL,UR FEW /LPF (FEW)
[2025-02-03] MEDS: HYDROcodone/acetaminophen 5mg/325mg tablet PO ONE (03:43)
[2025-02-03 04:23] VITALS: BP 127/71; PULSE 84; RESP 16; O2SAT 95
== END 2025-02-03 04:27 | disposition home or self-care (01) ==
LOC: ER 19:01
DX: R07.89 Other chest pain (principal); I25.2 Old myocardial infarction; R51.9 Headache, unspecified
CPT/HCPCS: 36415; 70450; 71045; 80048; 81001; 83605; 83880; 84145; 85025; 87040; 93005; 96372; 99285; J1885